=== PATIENT | female | born 2005 | race Caucasian/White ===

== ENCOUNTER 2023-05-21 09:46 | Inpatient (IN) ==
[2023-05-21] MEDS ORDERED: Lactated Ringers 1000 ml BAG 1,000 ML IV ONE (10:47)
[2023-05-21] MEDS ORDERED: Lidocaine 1% VIAL 10 MG/ML 30 ML VIAL INJ PRN (10:47)
[2023-05-21 12:29] LABS: ABS Basophils 0.1 10^3/uL (0.0-0.1); ABS Eosinophils 0.1 10^3/uL (0.0-0.5); ABS Lymphocytes 1.7 10^3/uL (1.0-4.8); ABS Monocytes 0.9 10^3/uL (0.0-0.9); Eosinophil % 0.9 %; Hematocrit 31.8 % (35-45); Hemoglobin 10.5 g/dL (11.5-14.3); Lymphocyte % 13.2 %; Mean Corpuscular Hemoglobin 26.2 pg (27-33); Mean Corpuscular Hgb Conc 33.1 g/dL (31-36); Mean Corpuscular Volume 79.2 fL (80-97); Mean Platelet Volume 8.6 fL (7.5-11.2); Platelet Count 205 10^3/uL (150-450); Red Blood Count 4.02 10^6/uL (3.63-4.92); Red Cell Distribution Width 13.5 % (12-17); White Blood Count 12.8 10^3/uL (3.8-11.8)
[2023-05-21 12:53] LABS: Urine Benzodiazepine Screen None Detected (None Detect); Urine Cannabinoids Screen Presumptive Positive (None Detect); Urine Opiates Screen None Detected (None Detect)
[2023-05-21] MEDS ORDERED: fentaNYL 100 mcg/2 ml 50 MCG/ML VIAL IV SLOW PU ONE (22:15)
[2023-05-22] MEDS ORDERED: Witch Hazel PAD JAR TOPICAL PRN (00:54)
[2023-05-22] MEDS ORDERED: Oxytocin in LR 20,000 MILLI.UNIT/1,000 ML BAG IV SCH (00:55)
[2023-05-22] MEDS ORDERED: Lactated Ringers 1000 ml BAG 1,000 ML IV SCH (01:00)
[2023-05-22] MEDS: Dibucaine 1% OINT 28.35 GM TUBE PR PRN (02:37)
[2023-05-22] MEDS ORDERED: Oxytocin 10 UNITS/ML 1 ML VIAL ONE (03:38)
[2023-05-22] MEDS ORDERED: Varicella Virus Vaccine Live 0.5 ML VIAL SUBCUT ONE (09:00)
[2023-05-23 07:57] LABS: ABS Basophils 0.1 10^3/uL (0.0-0.1); ABS Eosinophils 0.2 10^3/uL (0.0-0.5); ABS Monocytes 0.9 10^3/uL (0.0-0.9); ABS Neutrophils 9.2 10^3/uL (1.5-7.6); ABS Nucleated RBC 0.01 10^3/ul; Eosinophil % 1.1 %; Hematocrit 30.5 % (35-45); Hemoglobin 9.9 g/dL (11.5-14.3); Lymphocyte % 22.4 %; Mean Corpuscular Hgb Conc 32.5 g/dL (31-36); Mean Corpuscular Volume 80.1 fL (80-97); Nucleated Red Blood Cells % 0.1 %/100WBC (0.0-0.8); Platelet Count 174 10^3/uL (150-450); Red Blood Count 3.81 10^6/uL (3.63-4.92); Red Cell Distribution Width 13.8 % (12-17); White Blood Count 13.4 10^3/uL (3.8-11.8)
[2023-05-23] MEDS: Dibucaine 1% OINT 28.35 GM TUBE PR PRN (08:46)
[2023-05-23 10:47] VITALS: BP 121/83
== END 2023-05-23 14:20 | disposition home or self-care (01) | DRG 560 ==
LOC: MCHOBOUT 09:46 → MCHOB 10:44
PROVIDERS: ADMIT Midwife; ATTEND Midwife